=== PATIENT | female | born 1935 | race Caucasian/White ===

== ENCOUNTER → 2016-10-31 | Outpatient (REF) | payer MEDICARE ==
[2016-10-31 16:18] LABS: ALBUMIN 3.6 GM/DL (3.2-5.2); ALBUMIN/GLOBULIN RATIO 0.97 (1.00-1.93); ALKALINE PHOSPHATASE 87 U/L (45-117); ALT/SGPT 25 U/L (12-78); AST/SGOT 13 U/L (15-37); BILIRUBIN,DIRECT < 0.1 MG/DL (0.0-0.2); BILIRUBIN,TOTAL 0.3 MG/DL (0.2-1.0); CHOLESTEROL LEVEL 216 MG/DL (<200); TOTAL PROTEIN 7.3 GM/DL (6.4-8.2); TRIGLYCERIDES LEVEL 184 MG/DL (<150)
== END ==
LOC: M LABDRAW1 13:08
PROVIDERS: ATTEND Internal Medicine Cardiovascular Disease
DX: E78.00 Pure hypercholesterolemia, unspecified (principal)

== ENCOUNTER 2018-10-04 22:11 | Inpatient (IN) | payer MEDICARE ==
[~2018-10-04] VITALS: Ht 160 cm; Wt 89.4 kg
[2018-10-05 00:15] VITALS: BP 131/61
[2018-10-05] MEDS ORDERED: MAALOX 30 ML SUSP *UDC PO PRN (01:45)
[2018-10-05] MEDS ORDERED: GLUCAGON FOR INJ 1 MG VIAL (J1610) SC PRN (01:45)
[2018-10-05] MEDS ORDERED: DEXTROSE 50% 50 ML SYRINGE IV PRN (01:45)
[2018-10-05] MEDS ORDERED: GLUCOSE 4 GM CHEW TABLET PO PRN (01:45)
[2018-10-05] MEDS ORDERED: MOM 30ML SUSPENSION UDC PO PRN (01:45)
[2018-10-05] MEDS ORDERED: ACETAMINOPHEN TAB 650MG DOSE (2X325MG) PO PRN (01:45)
--- NOTE | 2018-10-05 01:59 | HPEPDOC ---
General Date of Admission October 05, 2018 at 00:06 Chief Complaint The patient is a 83-year-old female admitted with a reason for visit of Diverticulitis. Source: Patient, RN/MD History of Present Illness Ms. Arias is an 83 years old woman transferred from [facility] for Diverticul itis with microperforation. Pt reports lower abdominal pain and nausea for several days. She also had loose stools, but denies fever or chills. At [facility] ED, pt had WBC of 15K with normal vitals. CT abdomen showed Sigmoid Diverticulitis with microperforation. On arrival here, pt reports resolution of abdominal pain after having received pain meds. She has mild nausea. Mental status and vitals are good. Pt reports having similar episode seven years ago. 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 (recently switched from Coumadin to Xarelto), Hypothyroidism Surgical History Appendectomy, Cholecystectomy, Tubal ligation Family History None reported Social History * Smoker: former Smoker Alcohol: occationally Drugs: denies A-FIB/CHADSVASC A-FIB History Current/History of A-Fib/PAF?: No Review of Systems Constitutional: Denies: Chills, Fever Eyes: Denies: Pain ENT: Denies: Head Aches Skin: Denies: Rash Pulmonary: Denies: Dyspnea, Cough Cardiovascular: Denies: Chest Pain, Palpitations Gastrointestinal: Reports: Nausea, Abdominal Pain; Denies: Vomiting, Diarrhea Genitourinary: Denies: Dysuria, Frequency Musculoskeletal: Denies: Neck Pain, Back Pain Neurological: Denies: Weakness Psych: Reports: Mood Normal; Denies: Anxiety Physical Examination General Exam: Positive: Alert, Cooperative, No Acute Distress Eye Exam: Positive: PERRLA ENT Exam: Positive: Atraumatic Neck Exam: Positive: Supple; Negative: JVD Chest Exam: Positive: Clear to auscultation, Normal air movement Heart Exam: Positive: Rate Normal, Regular Rhythm Abdomen Exam: Positive: Normal bowel sounds, Soft, Other (tenderness without guarding on left lower abdomen) Extremity Exam: Negative: Edema Skin Exam: Negative: Rash Neuro Exam: Positive: Normal Speech, Strength at 5/5 X4 ext Psych Exam: Positive: Mental status NL, Mood NL Vital Signs See nursing note Laboratory Data Labs 24H Laboratory Tests 2 10/05/18 00:50: Bedside Glucose (Misc Panel) 168H Assessment/Plan Sigmoid Colon Diverticulitis with Microperforation - Admit to med/surg - NPO, IV Fluid, IV Cipro and Flagyl - PRN Morphine and Zofran - Surgical Consult; spoke with Dr. Avina Hx/o DVT on Life-long Anticoagulation - Hold Xarelto for now; put on therapeutic dose of Lovenox NIDDM, Hypothyroidism - SSI, Synthroid Problems (1) Diverticulitis large intestine Status: Acute (2) DM type 2 (diabetes mellitus, type 2) Status: Chronic (3) Hypothyroidism Status: Chronic (4) History of deep venous thrombosis or pulmonary embolus Status: Chronic Plan / VTE VTE Prophylaxis Ordered?: No (pt is on therapeutic lovenox) VTE Exclusion Mechanical Proph: Other VTE Exclusion Pharmacological: Other NOLBERTO RODRIGUEZ MD October 05, 2018 01:59
[2018-10-05 02:23] LABS: BASO % 0.1 % (0.0-1.0); EOS # 0.2 10^3/uL (0.0-0.50); EOS % 1.7 % (0.0-3.0); HEMOGLOBIN 8.8 g/dl (12.0-15.5); LYMPH # 2.6 10^3/uL (1.5-4.5); LYMPH % 19.1 % (24.0-44.0); MEAN CORPUSCULAR HEMOGLOBIN 25.7 pg (27.0-33.0); MEAN CORPUSCULAR HGB CONC 31.4 g/dl (32.0-36.5); MEAN CORPUSCULAR VOLUME 81.6 fl (80.0-96.0); MONO # 1.2 10^3/uL (0.0-0.8); MONO % 8.7 % (0.0-5.0); NEUTROPHILS # 9.4 10^3/uL (1.8-7.7); PLATELET COUNT, AUTOMATED 252 10^3/uL (150-450); RED BLOOD COUNT 3.43 10^6/uL (4.00-5.40); WHITE BLOOD COUNT 13.5 10^3/uL (4.0-10.0)
[2018-10-05] MEDS: D5W/0.9% SODIUM CHLORIDE 1,000 ML IV SCH ×3 (02:29→11:53)
[2018-10-05] MEDS ORDERED: AMLO5TAB6 PO (02:30)
[2018-10-05] MEDS ORDERED: MONT10TA2 PO (02:30)
[2018-10-05] MEDS ORDERED: SIMV40TA2 PO (02:30)
[2018-10-05] MEDS ORDERED: SYNT75TA PO (02:30)
[2018-10-05] MEDS ORDERED: XARE10TA PO (02:30)
[2018-10-05] MEDS ORDERED: ATEN25TA PO (02:30)
[2018-10-05] MEDS ORDERED: VITA1CAP25 PO (02:30)
[2018-10-05] MEDS ORDERED: CHLO25TA PO (02:30)
[2018-10-05] MEDS ORDERED: GLIP10TA6 PO (02:30)
[2018-10-05] MEDS ORDERED: SERT-138 PO (02:30)
[2018-10-05 02:44] LABS: INR 1.35; PROTHROMBIN TIME 16.9 SECONDS (12.1-14.4)
[2018-10-05 02:49] LABS: ALBUMIN 2.6 GM/DL (3.2-5.2); BILIRUBIN,TOTAL 0.5 MG/DL (0.2-1.0); CALCIUM LEVEL 8.1 MG/DL (8.8-10.2); CREATININE FOR GFR 1.8 MG/DL (0.55-1.30); GLOMERULAR FILTRATION RATE 28.6 (>32); POTASSIUM SERUM 3.9 MEQ/L (3.5-5.1); TOTAL PROTEIN 6.3 GM/DL (6.4-8.2)
[2018-10-05] MEDS: HumaLOG INSULIN (NovoLOG) PER UNIT SC SCH ×4 (02:59→18:00)
[2018-10-05] MEDS: LEVOTHYROXINE 75MCG TABLET (0.075MG) PO SCH (05:47)
[2018-10-05 06:00] VITALS: BP 125/90
[2018-10-05] MEDS: metroNIDAZOLE 500 MG in APPROPRIATE DILUENT 1 EA IV SCH ×3 (08:16→23:30)
[2018-10-05] MEDS: ENOXAPARIN 100MG/1ML SYRINGE (J1650) SC SCH ×2 (08:17→20:54)
[2018-10-05] MEDS: ATENOLOL 25 MG TAB PO SCH (08:18)
[2018-10-05] MEDS: SERTRALINE 100 MG TAB PO SCH (08:18)
[2018-10-05] MEDS: MONTELUKAST 10 MG TAB PO SCH (08:18)
[2018-10-05] MEDS: CIPROFLOXACIN 400 MG in APPROPRIATE DILUENT 1 EA IV SCH ×2 (09:08→20:54)
[2018-10-05] MEDS: ONDANSETRON 4MG/2ML VIAL (J2405) IV PRN ×2 (12:16→23:30)
[2018-10-05 14:00] VITALS: BP 131/59
--- NOTE | 2018-10-05 17:52 | IPNPDOC ---
Date Seen The patient was seen on 10/05/18. Progress Note SUBJECTIVE: Patient without any acute pain this time but she does have tenderness on her left lower quadrant. Patient states that she had similar episodes previously. Patient was evaluated by the general surgeon. Patient did not show signs of guarding or rigidity of the abdomen. Awaiting further recommendation by surgery. OBJECTIVE PHYSICAL EXAMINATION: VITAL SIGNS: Please see below GENERAL APPEARANCE: Resting comfortably HEENT: Normocephalic, PERRLA, Mucous moist, CARDIOVASCULAR: S1,S2, pulse present, regularly, regular LUNGS: Equal air entry b/l, no wheezes or crackle ABDOMEN: Soft, BS present, tenderness without guarding on left lower abdomen EXTREMITIES: B/L no edema, capillary refill present SKIN: Warm, No fever NEUROLOGICAL: Cranial nerves grossly intact PSYCHIATRIC: Normal mood and affect for current situation LABORATORY DATA, IMAGING STUDIES, MICROBIOLOGY: Please see below. Ms. Arias is an 83 years old woman transferred from [facility] for Diverticulitis with microperforation. Pt reports lower abdominal pain and nausea for several days. She also had loose stools, but denies fever or chills. At [facility] ED, pt had WBC of 15K with normal vitals. CT abdomen showed Sigmoid Diverticulitis with microperforation. On arrival here, pt reports resolution of abdominal pain after having received pain meds. She has mild nausea. Mental status and vitals are good. Pt reports having similar episode seven years ago. Assessment and plan: Sigmoid Colon Diverticulitis with Microperforation - NPO, advance as per surgery - s/p IV Fluid - IV Cipro and Flagyl - PRN Morphine and Zofran - Surgical Consult with Dr. Avina ARF -hold renal toxic medication -hold Chlorthalidone -gentle ivf Hx/o DVT on Life-long Anticoagulation - Hold Xarelto for now; put on therapeutic dose of Lovenox NIDDM -SSI -hypoglycemic protocol -hold po med Hypothyroidism -Synthroid HTN -Atenolol -norvasc HLD -statin DISPOSITION: [Treat acute issue]. VS, I&O, 24H, Fishbone Vital Signs/I&O Vital Signs Date Time Temp Pulse Resp B/P (MAP) Pulse Ox O2 Delivery O2 Flow Rate FiO2 10/05/18 14:00 97.3 56 18 131/59 (83) 95 I&O- Last 24 Hours up to 6 AM 5/7/19 06:00 Intake Total 0 ml Output Total 0 ml Balance 0 ml Laboratory Data 24H LABS Laboratory Tests 2 10/05/18 00:50: Bedside Glucose (Misc Panel) 168H 10/05/18 02:08: Immature Granulocyte % (Auto) 0.4, White Blood Count 13.5H, Red Blood Count 3.43L, Hemoglobin 8.8L, Hematocrit 28.0L, Mean Corpuscular Volume 81.6, Mean Corpuscular Hemoglobin 25.7L, Mean Corpuscular Hemoglobin Concent 31.4L, Red Cell Distribution Width 17.8H, Platelet Count 252, Neutrophils (%) (Auto) 70.0H, Lymphocytes (%) (Auto) 19.1L, Monocytes (%) (Auto) 8.7H, Eosinophils (%) (Auto) 1.7, Basophils (%) (Auto) 0.1, Neutrophils # (Auto) 9.4H, Lymphocytes # (Auto) 2.6, Monocytes # (Auto) 1.2H, Eosinophils # (Auto) 0.2, Basophils # (Auto) 0.0, Nucleated Red Blood Cells % (auto) 0.0, Prothrombin Time 16.9H, Prothromb Time International Ratio 1.35, Anion Gap 8, Glomerular Filtration Rate 28.6L, Lactic Acid Level 0.7, Blood Urea Nitrogen 32H, Creatinine 1.80H, Sodium Level 140, Potassium Level 3.9, Chloride Level 105, Carbon Dioxide Level 27, Calcium Level 8.1L, Aspartate Amino Transf (AST/SGOT) 8, Alanine Aminotransferase (ALT/SGPT) 16, Alkaline Phosphatase 109, Total Bilirubin 0.5, Total Protein 6.3L, Albumin 2.6L, Albumin/Globulin Ratio 0.70L 10/05/18 05:32: Bedside Glucose (Misc Panel) 156H 10/05/18 11:42: Bedside Glucose (Misc Panel) 171H CBC/BMP Laboratory Tests 10/05/18 02:08 Red Blood Count 3.43 L, Mean Corpuscular Volume 81.6, Mean Corpuscular Hemoglobin 25.7 L, Mean Corpuscular Hemoglobin Concent 31.4 L, Red Cell Distribution Width 17.8 H, Neutrophils (%) (Auto) 70.0 H, Lymphocytes (%) (Auto) 19.1 L, Monocytes (%) (Auto) 8.7 H, Eosinophils (%) (Auto) 1.7, Basophils (%) (Auto) 0.1, Neutrophils # (Auto) 9.4 H, Lymphocytes # (Auto) 2.6, Monocytes # (Auto) 1.2 H, Eosinophils # (Auto) 0.2, Basophils # (Auto) 0.0, Calcium Level 8.1 L, Aspartate Amino Transf (AST/SGOT) 8, Alanine Aminotransferase (ALT/SGPT) 16, Alkaline Phosphatase 109, Total Bilirubin 0.5, Total Protein 6.3 L, Albumin 2.6 L JOSÉ LUIS DAMON MD October 05, 2018 17:51
[2018-10-05] MEDS: SIMVASTATIN 40 MG TAB PO SCH (20:54)
[2018-10-05 22:00] VITALS: BP 136/63
[2018-10-06] MEDS: MORPHINE 4 MG/ML 1ML VIAL/SYRINGE (J2270) IV PRN ×2 (01:05→18:52)
[2018-10-06 06:00] VITALS: BP 131/60
[2018-10-06] MEDS: LEVOTHYROXINE 75MCG TABLET (0.075MG) PO SCH (06:19)
[2018-10-06] MEDS: HumaLOG INSULIN (NovoLOG) PER UNIT SC SCH ×4 (06:20→18:00)
[2018-10-06] MEDS: D5W/0.9% SODIUM CHLORIDE 1,000 ML IV SCH ×2 (07:58→17:23)
[2018-10-06] MEDS: MONTELUKAST 10 MG TAB PO SCH (08:01)
[2018-10-06] MEDS: amLODIPine 5 MG TAB PO SCH (08:01)
[2018-10-06] MEDS: SERTRALINE 100 MG TAB PO SCH (08:01)
[2018-10-06] MEDS: ENOXAPARIN 100MG/1ML SYRINGE (J1650) SC SCH ×2 (08:01→20:32)
[2018-10-06] MEDS: ATENOLOL 25 MG TAB PO SCH (08:01)
[2018-10-06] MEDS: metroNIDAZOLE 500 MG in APPROPRIATE DILUENT 1 EA IV SCH ×2 (08:01→15:31)
[2018-10-06 08:05] LABS: HEMATOCRIT 28.8 % (36.0-47.0); HEMOGLOBIN 8.8 g/dl (12.0-15.5); MEAN CORPUSCULAR HEMOGLOBIN 25.4 pg (27.0-33.0); MEAN CORPUSCULAR HGB CONC 30.6 g/dl (32.0-36.5); MEAN CORPUSCULAR VOLUME 83.2 fl (80.0-96.0); PLATELET COUNT, AUTOMATED 265 10^3/uL (150-450); RED BLOOD COUNT 3.46 10^6/uL (4.00-5.40); WHITE BLOOD COUNT 12.1 10^3/uL (4.0-10.0)
[2018-10-06 08:30] LABS: CALCIUM LEVEL 8.2 MG/DL (8.8-10.2); CREATININE FOR GFR 1.45 MG/DL (0.55-1.30); GLOMERULAR FILTRATION RATE 36.7 (>32); POTASSIUM SERUM 3.6 MEQ/L (3.5-5.1)
[2018-10-06] MEDS ORDERED: PREVNAR 13 VACCINE SYRINGE (CPT CODE:90670) IM ONE (09:00)
[2018-10-06] MEDS: CIPROFLOXACIN 400 MG in APPROPRIATE DILUENT 1 EA IV SCH ×2 (09:12→20:32)
[2018-10-06] MEDS: PANTOPRAZOLE 40MG INJ (PROTONIX) (C9113) IV SCH (09:48)
[2018-10-06] MEDS: ONDANSETRON 4MG/2ML VIAL (J2405) IV PRN ×2 (10:18→18:11)
[2018-10-06 14:00] VITALS: BP 141/65
--- NOTE | 2018-10-06 15:53 | IPNPDOC ---
Date Seen The patient was seen on 10/06/18. Progress Note SUBJECTIVE: Patient awaiting further recommendation by surgery. Patient strength feel slightly hungry. Patient's renal function improving. Otherwise no other complaints. She complained of reflux and thus will provide protonix IV. OBJECTIVE PHYSICAL EXAMINATION: VITAL SIGNS: Please see below GENERAL APPEARANCE: Resting comfortably HEENT: Normocephalic, PERRLA, Mucous moist, CARDIOVASCULAR: S1,S2, pulse present, regularly, regular LUNGS: Equal air entry b/l, no wheezes or crackle ABDOMEN: Soft, BS present, tenderness without guarding on left lower abdomen EXTREMITIES: B/L no edema, capillary refill present SKIN: Warm, No fever NEUROLOGICAL: Cranial nerves grossly intact PSYCHIATRIC: Normal mood and affect for current situation LABORATORY DATA, IMAGING STUDIES, MICROBIOLOGY: Please see below. Ms. Arias is an 83 years old woman transferred from [facility] for Diverticulitis with microperforation. Pt reports lower abdominal pain and nausea for several days. She also had loose stools, but denies fever or chills. At [facility] ED, pt had WBC of 15K with normal vitals. CT abdomen showed Sigmoid Diverticulitis with microperforation. On arrival here, pt reports resolution of abdominal pain after having received pain meds. She has mild nausea. Mental status and vitals are good. Pt reports having similar episode seven years ago. Assessment and plan: Sigmoid Colon Diverticulitis with Microperforation, GERD - NPO, advance as per surgery - s/p IV Fluid - IV Cipro and Flagyl - PRN Morphine and Zofran - Surgical Consult with Dr. Avina - Protonix ARF, improving -hold renal toxic medication -hold Chlorthalidone -gentle ivf Hx/o DVT on Life-long Anticoagulation - Hold Xarelto for now; put on therapeutic dose of Lovenox for possible surgical intervention NIDDM -SSI -hypoglycemic protocol -hold po med Hypothyroidism -Synthroid HTN -Atenolol -norvasc HLD -statin DISPOSITION: [Treat acute issue] VS, I&O, 24H, Fishbone Vital Signs/I&O Vital Signs Date Time Temp Pulse Resp B/P (MAP) Pulse Ox O2 Delivery O2 Flow Rate FiO2 10/06/18 14:00 98.3 66 17 141/65 (90) 92 I&O- Last 24 Hours up to 6 AM 10/06/18 06:00 Intake Total 500 ml Output Total 700 ml Balance -200 ml Laboratory Data 24H LABS Laboratory Tests 2 10/05/18 17:51: Bedside Glucose (Misc Panel) 141H 10/06/18 00:09: Bedside Glucose (Misc Panel) 151H 10/06/18 04:45: Urine Color YELLOW, Urine Appearance CLEAR, Urine pH 5.0, Urine Specific [place] 1.013, Urine Protein NEGATIVE, Urine Glucose (UA) NEGATIVE, Urine Ketones NEGATIVE, Urine Blood NEGATIVE, Urine Nitrite NEGATIVE, Urine Bilirubin NEGATIVE, Urine Urobilinogen 0.2, Urine Leukocyte Esterase TRACEH, Urine WBC (Auto) 1, Urine RBC (Auto) 1, Urine Hyaline Casts (Auto) 0, Urine Bacteria (Auto) NEGATIVE, Urine Squamous Epithelial Cells 0, Urine Mucus (Auto) SMALL, Urine Sperm (Auto) 10/06/18 06:11: Bedside Glucose (Misc Panel) 196H 10/06/18 07:50: Nucleated Red Blood Cells % (auto) 0.0, Anion Gap 5L, Glomerular Filtration Rate 36.7, Blood Urea Nitrogen 20H, Creatinine 1.45H, Sodium Level 139, Potassium L evel 3.6, Chloride Level 108H, Carbon Dioxide Level 26, Calcium Level 8.2L 10/06/18 11:59: Bedside Glucose (Misc Panel) 223H CBC/BMP Laboratory Tests 10/06/18 07:50 Red Blood Count 3.46 L, Mean Corpuscular Volume 83.2, Mean Corpuscular Hemoglobin 25.4 L, Mean Corpuscular Hemoglobin Concent 30.6 L, Red Cell Distribution Width 17.6 H, Calcium Level 8.2 L Microbiology Microbiology 10/06/18 Urine Culture, Received Pending JOSÉ LUIS DAMON MD October 06, 2018 15:53
[2018-10-06] MEDS: SIMVASTATIN 40 MG TAB PO SCH (20:32)
[2018-10-06 22:00] VITALS: BP 157/59
[2018-10-07] MEDS: metroNIDAZOLE 500 MG in APPROPRIATE DILUENT 1 EA IV SCH ×3 (00:23→15:19)
[2018-10-07] MEDS: HumaLOG INSULIN (NovoLOG) PER UNIT SC SCH ×3 (00:24→12:42)
[2018-10-07] MEDS: D5W/0.9% SODIUM CHLORIDE 1,000 ML IV SCH ×2 (01:13→12:43)
[2018-10-07] MEDS: LEVOTHYROXINE 75MCG TABLET (0.075MG) PO SCH (05:51)
[2018-10-07 06:00] VITALS: BP 141/65
[2018-10-07 06:09] LABS: HEMATOCRIT 27.2 % (36.0-47.0); HEMOGLOBIN 8.3 g/dl (12.0-15.5); MEAN CORPUSCULAR HEMOGLOBIN 24.9 pg (27.0-33.0); MEAN CORPUSCULAR HGB CONC 30.5 g/dl (32.0-36.5); MEAN CORPUSCULAR VOLUME 81.4 fl (80.0-96.0); PLATELET COUNT, AUTOMATED 261 10^3/uL (150-450); RED BLOOD COUNT 3.34 10^6/uL (4.00-5.40)
[2018-10-07 06:34] LABS: CREATININE FOR GFR 1.32 MG/DL (0.55-1.30); GLOMERULAR FILTRATION RATE 40.9 (>32); POTASSIUM SERUM 3.3 MEQ/L (3.5-5.1)
[2018-10-07] MEDS ORDERED: MAGNESIUM OXIDE 400 MG TAB (MAG-OX) PO ONE (08:00)
[2018-10-07] MEDS: CIPROFLOXACIN 400 MG in APPROPRIATE DILUENT 1 EA IV SCH ×2 (08:45→20:34)
[2018-10-07] MEDS: PANTOPRAZOLE 40MG INJ (PROTONIX) (C9113) IV SCH (08:45)
[2018-10-07] MEDS: ENOXAPARIN 100MG/1ML SYRINGE (J1650) SC SCH ×2 (08:46→20:34)
[2018-10-07] MEDS: ATENOLOL 25 MG TAB PO SCH (08:47)
[2018-10-07] MEDS: SERTRALINE 100 MG TAB PO SCH (08:47)
[2018-10-07] MEDS: MONTELUKAST 10 MG TAB PO SCH (08:47)
[2018-10-07] MEDS: amLODIPine 5 MG TAB PO SCH (08:47)
[2018-10-07] MEDS ORDERED: POTASSIUM CHLORIDE 10 MEQ SR TABLET PO ONE (09:00)
[2018-10-07] MEDS: GASTROGRAFIN SOLUTION 30ML PO SCH ×2 (09:30→09:36)
--- NOTE | 2018-10-07 13:55 | REP ---
CT abdomen and pelvis with oral but without IV contrast: History: Abdomen pain. Abnormal CT. Followup. No comparison CT studies are available. CT findings: Digital preliminary road machine runner radiograph demonstrates laparotomy jaelyn to the right of midline in the anterior abdominal wall. The bowel gas pattern is normal. The lung bases are essentially clear on axial CT images. Mild linear fibrosis is seen in the left lower lobe. There is a small sliding-type hiatal hernia noted. The liver and spleen are normal in size and homogeneous in texture. No adrenal lesion is seen on either side. The gallbladder is surgically absent. There are numerous calcifications within and adjacent to the pancreatic head, body and tail consistent with chronic pancreatitis changes. There is an inferior vena cava filter in place. There is a low-density area in the upper pole of the left kidney consistent with a cyst. This measures 2.1 cm in greatest diameter. No hydronephrosis is seen. No retroperitoneal mass is seen. There is a retroaortic left renal vein noted incidentally. There is left colonic diverticulosis. There is a segment of mural thickening and pericolonic fat streaking in the sigmoid colon with one or two adjacent lymph nodes. This is compatible with acute diverticulitis however a sigmoid colon neoplasm could have a similar appearance. This should be correlated clinically. There is no evidence of obstruction. No uterine or ovarian abnormality is seen. There is mild thickening of the urinary bladder wall on the left side and near its dome as this portion of the bladder is adjacent to the inflamed sigmoid colon. Impression: Mural thickening and diverticulosis with pericolonic streaking and adjacent lymph nodes in the sigmoid colon most consistent with acute diverticulitis. This should be correlated clinically. A sigmoid colon neoplasm could have this appearance as well. No evidence of free intraperitoneal air or abscess. IVC filter in place. Small left renal cyst. Electronically Signed by Salazar Spivey MD 10/07/2018 03:12 P
[2018-10-07 14:00] VITALS: BP 132/60
--- NOTE | 2018-10-07 14:28 | IPNPDOC ---
Date Seen The patient was seen on 10/07/18. Progress Note SUBJECTIVE: Patient still has generalized abdominal pain this morning. Patient was seen by surgery. CT abdomen with PO contrast:acute diverticulitis, a sigmoid colon neoplasm could have this appearance as well. Patient on abx. Further recommendation as per surgery. Low potassium, will replace. OBJECTIVE PHYSICAL EXAMINATION: VITAL SIGNS: Please see below GENERAL APPEARANCE: Resting comfortably HEENT: Normocephalic, PERRLA, Mucous moist, CARDIOVASCULAR: S1,S2, pulse present, regularly, regular LUNGS: Equal air entry b/l, no wheezes or crackle ABDOMEN: Soft, BS present, tenderness without guarding on left lower abdomen EXTREMITIES: B/L no edema, capillary refill present SKIN: Warm, No fever NEUROLOGICAL: Cranial nerves grossly intact PSYCHIATRIC: Normal mood and affect for current situation LABORATORY DATA, IMAGING STUDIES, MICROBIOLOGY: Please see below. Ms. Arias is an 83 years old woman transferred from [facility] for Diverticulitis with microperforation. Pt reports lower abdominal pain and nausea for several days. She also had loose stools, but denies fever or chills. At [facility] ED, pt had WBC of 15K with normal vitals. CT abdomen showed Sigmoid Diverticulitis with microperforation. On arrival here, pt reports resolution of abdominal pain after having received pain meds. She has mild nausea. Mental status and vitals are good. Pt reports having similar episode seven years ago. Assessment and plan: Sigmoid Colon Diverticulitis with Microperforation, GERD - NPO, advance as per surgery - s/p IV Fluid - IV Cipro and Flagyl - PRN Morphine and Zofran - Surgical Consult with Dr. Avina - Protonix - UA negative, urine culture: no growth - Ct abdomen:Mural thickening and diverticulosis with pericolonic streaking and adjacent lymph nodes in the sigmoid colon most consistent with acute diverticulitis. This should be correlated clinically. A sigmoid colon neoplasm could have this appearance as well. No evidence of free intraperitoneal air or abscess. IVC filter in place. Small left renal cyst. ARF, improving -hold renal toxic medication -hold Chlorthalidone -gentle ivf Hx/o DVT on Life-long Anticoagulation - Hold Xarelto for now; put on therapeutic dose of Lovenox for possible surgical intervention NIDDM -SSI -hypoglycemic protocol -hold po med Hypothyroidism -Synthroid HTN -Atenolol -norvasc HLD -statin DISPOSITION: [Treat acute issue]. VS, I&O, 24H, Fishbone Vital Signs/I&O Vital Signs Date Time Temp Pulse Resp B/P (MAP) Pulse Ox O2 Delivery O2 Flow Rate FiO2 10/07/18 08:47 68 140/65 10/07/18 06:00 97.3 20 95 I&O- Last 24 Hours up to 6 AM 10/07/18 06:00 Intake Total 2700 ml Output Total 350 ml Balance 2350 ml Laboratory Data 24H LABS Laboratory Tests 2 10/06/18 18:14: Bedside Glucose (Misc Panel) 139H 10/06/18 23:40: Bedside Glucose (Misc Panel) 172H 10/07/18 05:31: Nucleated Red Blood Cells % (auto) 0.0, Anion Gap 7L, Glomerular Filtration Rate 40.9, Blood Urea Nitrogen 13, Creatinine 1.32H, Sodium Level 140, Potassium Level 3.3L, Chloride Level 106, Carbon Dioxide Level 27, Calcium Level 8.0L 10/07/18 05:48: Bedside Glucose (Misc Panel) 150H 10/07/18 11:54: Bedside Glucose (Misc Panel) 187H CBC/BMP Laboratory Tests 10/07/18 05:31 Red Blood Count 3.34 L, Mean Corpuscular Volume 81.4, Mean Corpuscular Hemoglobin 24.9 L, Mean Corpuscular Hemoglobin Concent 30.5 L, Red Cell Distribution Width 17.3 H, Calcium Level 8.0 L Microbiology Microbiology 10/06/18 Urine Culture - Final, Complete JOSÉ LUIS DAMON MD October 07, 2018 14:27
[2018-10-07] MEDS ORDERED: MAG SULF 1GM/100ML (MAG RUN) 1 GM in APPROPRIATE DILUENT 1 EA IV ONE (14:30)
[2018-10-07] MEDS ORDERED: KCL 10MEQ/100ML SWI (KRUN) 10 MEQ in APPROPRIATE DILUENT 1 EA IV SCH (15:30)
--- NOTE | 2018-10-07 17:07 | IPNPDOC ---
Subjective General Date/Time Seen The patient was seen on 10/07/18 at 16:49. Subject Chief Complaint/History The patient is a 83-year-old female admitted with a reason for visit of Diverticulitis. Patient feels somewhat better still has some discomfort over the left lower quadrant area but is tolerating clears. She denies any nausea or vomiting. She has been afebrile throughout her same hospital. Current Medications Current Medications Current Medications Acetaminophen (Tylenol Tab) 650 mg Q4H PRN PO PAIN OR FEVER Last administered on 10/05/18 18:49; Start 10/05/18 at 01:45 Al Hydrox/Mg Hydrox/Simethicone (Mylanta) 10 ml DAILY PRN PO DYSPEPSIA Last administered on 10/06/18 10:17; Start 10/05/18 at 01:45 Amlodipine Besylate (Norvasc) 5 mg DAILY PO Last administered on 10/07/18 08:47; Start 10/06/18 at 09:00 Atenolol (Tenormin) 25 mg DAILY PO Last administered on 10/07/18 08:47; Start 10/05/18 at 09:00 Ciprofloxacin 400 mg/IV Miscellaneous Supplies 200 ml @ 200 mls/hr Q12H IV Last administered on 10/07/18 08:45; Start 10/05/18 at 09:00 Dextrose (Dextrose 50%) 25 ml ASDIRECTED PRN IV SEE LABEL COMMENTS; Start 10/05/18 at 01:45 Dextrose/Sodium Chloride 1,000 ml @ 100 mls/hr Q10H IV Last administered on 10/07/18at 12:43; Start 10/05/18 at 01:45 Diatrizoate Meglum/ Diatrizoate Sod (Gastrografin) 10 ml Q30M PO Last administered on 10/07/18 09:30; Start 10/07/18 at 09:00; Stop 10/07/18 at 09:31; Status DC Enoxaparin Sodium (Lovenox) 90 mg Q12H SC Last administered on 10/07/18 08:46; Start 10/05/18 at 09:00 Glucagon (Glucagon) 1 mg ASDIRECTED PRN SC SEE LABEL COMMENTS; Start 10/05/18 at 01:45 Glucose (Glucose) 16 GM ASDIRECTED PRN PO SEE LABEL COMMENTS; Start 10/05/18 at 01:45 Home Med (Med Rec Complete!) ASDIRECTED XX ; Start 10/05/18 at 02:30; Stop 10/05/18 at 02:35; Status DC Insulin Human Lispro (HumaLOG INSULIN) SEE PROTOCOL TABLE Q6H SC Last administered on 10/07/18 12:42; Start 10/05/18 at 00:00 Levothyroxine Sodium (Synthroid) 75 mcg DAILY@0600 PO Last administered on 10/07/18 05:51; Start 10/05/18 at 06:00 Magnesium Hydroxide (Milk Of Magnesia) 30 ml DAILY PRN PO CONSTIPATION; Start 10/05/18 at 01:45 Metronidazole 500 mg/IV Miscellaneous Supplies 100 ml @ 100 mls/hr Q8H IV Last administered on 10/07/18 15:19; Start 10/05/18 at 08:00 Montelukast Sodium (Singulair) 10 mg DAILY PO Last administered on 10/07/18 08:47; Start 10/05/18 at 09:00 Morphine Sulfate (Morphine Sulfate Inj) 2 mg Q3HP PRN IV PAIN Last administered on 10/06/18 18:52; Start 10/05/18 at 01:45 Ondansetron HCl (ZOFRAN INJection) 4 mg Q4HP PRN IV NAUSEA OR VOMITING Last administered on 10/06/18 18:11; Start 10/05/18 at 01:45 Pantoprazole Sodium (Protonix) 40 mg Q24H IV Last administered on 10/07/18 08:45; Start 10/06/18 at 09:00 Potassium Chloride 10 meq/ IV Miscellaneous Supplies 100 ml @ 100 mls/hr Q1H IV ; Start 10/07/18 at 15:30; Stop 10/07/18 at 15:30; Status DC Sertraline HCl (Zoloft) 100 mg DAILY PO Last administered on 10/07/18 08:47; Start 10/05/18 at 09:00 Simvastatin (Zocor) 40 mg QHS PO Last administered on 10/06/18 20:32; Start 10/05/18 at 21:00 Allergies Coded Allergies: aspirin (Unverified Allergy, Unknown, 10/05/18) Objective Physical Examination Examination GENERAL APPEARANCE: Patient overall looks comfortable. SKIN: Warm and moist. HEENT: Normocephalic, atraumatic. Mccrory palpebral conjunctiva, anicteric sclerae. Lips and mucosa appear moist. NECK: Supple, no thyromegaly. No obvious jugular venous distention. LUNGS: Clear to auscultation bilaterally. No wheezing appreciated. HEART: No chest wall abnormalities. Regular rate and rhythm with no murmurs appreciated. ABDOMEN: Abdomen is slightly rounded, mildly obese, soft, minimal discomfort with deep palpation over the left lower quadrant area without rebound or guarding, no discomfort over the suprapubic area, right lower quadrant area. Vital Signs Vital Signs Date Time Temp Pulse Resp B/P (MAP) Pulse Ox O2 Delivery O2 Flow Rate FiO2 10/07/18 14:00 97.9 61 18 132/60 (84) 92 I&Os I&O- Last 24 Hours up to 6 AM 10/07/18 06:00 Intake Total 2700 ml Output Total 350 ml Balance 2350 ml Laboratory Data Labs 24H Laboratory Tests 2 10/06/18 18:14: Bedside Glucose (Misc Panel) 139H 10/06/18 23:40: Bedside Glucose (Misc Panel) 172H 10/07/18 05:31: Nucleated Red Blood Cells % (auto) 0.0, Anion Gap 7L, Glomerular Filtration Rate 40.9, Blood Urea Nitrogen 13, Creatinine 1.32H, Sodium Level 140, Potassium Level 3.3L, Chloride Level 106, Carbon Dioxide Level 27, Calcium Level 8.0L 10/07/18 05:48: Bedside Glucose (Misc Panel) 150H 10/07/18 11:54: Bedside Glucose (Misc Panel) 187H CBC/BMP Laboratory Tests 10/07/18 05:31 Red Blood Count 3.34 L, Mean Corpuscular Volume 81.4, Mean Corpuscular Hemoglobin 24.9 L, Mean Corpuscular Hemoglobin Concent 30.5 L, Red Cell Distribution Width 17.3 H, Calcium Level 8.0 L Microbiology Microbiology 10/06/18 Urine Culture - Final, Complete Imaging Studies CT abdomen and pelvis There is left colonic diverticulosis. There is a segment of mural thickening and pericolonic fat streaking in the sigmoid colon with one or two adjacent lymph nodes. This is compatible with acute diverticulitis however a sigmoid colon neoplasm could have a similar appearance. This should be correlated clinically. There is no evidence of obstruction. No uterine or ovarian abnormality is seen. There is mild thickening of the urinary bladder wall on the left side and near its dome as this portion of the bladder is adjacent to the inflamed sigmoid colon. Impression: Mural thickening and diverticulosis with pericolonic streaking and adjacent lymph nodes in the sigmoid colon most consistent with acute diverticulitis. This should be correlated clinically. A sigmoid colon neoplasm could have this appearance as well. No evidence of free intraperitoneal air or abscess. IVC filter in place. Small left renal cyst. Impression acute diverticulitis Pain improved (though still has discomfort) no progression of diverticulitis on CT, mild improvement She can be advanced to low residue diet Switch to PO abx when tolerating PO colonoscopy as outpatient (usually 6-8 weeks) I discussed elective colon resection to prevent recurrence of diverticulitis (If she wants to) Plan / VTE VTE Prophylaxis Ordered?: Yes VTE Exclusion Mechanical Proph: Other VTE Exclusion Pharmacological: Other CONRAD SHIRLEY MD October 07, 2018 16:51
[2018-10-07] MEDS: SIMVASTATIN 40 MG TAB PO SCH (20:33)
[2018-10-07 22:00] VITALS: BP 130/59
[2018-10-08] MEDS: metroNIDAZOLE 500 MG in APPROPRIATE DILUENT 1 EA IV SCH ×2 (00:57→08:11)
[2018-10-08] MEDS: D5W/0.9% SODIUM CHLORIDE 1,000 ML IV SCH (04:45)
[2018-10-08 05:58] LABS: HEMATOCRIT 27.3 % (36.0-47.0); HEMOGLOBIN 8.3 g/dl (12.0-15.5); MEAN CORPUSCULAR HEMOGLOBIN 25.2 pg (27.0-33.0); MEAN CORPUSCULAR HGB CONC 30.4 g/dl (32.0-36.5); PLATELET COUNT, AUTOMATED 236 10^3/uL (150-450); RED BLOOD COUNT 3.29 10^6/uL (4.00-5.40); WHITE BLOOD COUNT 8.2 10^3/uL (4.0-10.0)
[2018-10-08 06:00] VITALS: BP 155/80
[2018-10-08] MEDS: LEVOTHYROXINE 75MCG TABLET (0.075MG) PO SCH (06:01)
[2018-10-08 06:19] LABS: CALCIUM LEVEL 7.9 MG/DL (8.8-10.2); CREATININE FOR GFR 1.23 MG/DL (0.55-1.30); GLOMERULAR FILTRATION RATE 44.4 (>32); POTASSIUM SERUM 3.5 MEQ/L (3.5-5.1)
[2018-10-08] MEDS: PANTOPRAZOLE 40MG INJ (PROTONIX) (C9113) IV SCH (08:10)
[2018-10-08] MEDS: ENOXAPARIN 100MG/1ML SYRINGE (J1650) SC SCH ×2 (08:12→20:10)
[2018-10-08] MEDS: CIPROFLOXACIN 400 MG in APPROPRIATE DILUENT 1 EA IV SCH (08:12)
[2018-10-08] MEDS: ATENOLOL 25 MG TAB PO SCH (08:13)
[2018-10-08] MEDS: SERTRALINE 100 MG TAB PO SCH (08:14)
[2018-10-08] MEDS: amLODIPine 5 MG TAB PO SCH (08:14)
[2018-10-08] MEDS: MONTELUKAST 10 MG TAB PO SCH (08:14)
--- NOTE | 2018-10-08 09:07 | IPNPDOC ---
Date Seen The patient was seen on 10/08/18. Progress Note SUBJECTIVE: Patient ate solid food last night. She still has some abdominal pain but willing to try solid today. No abdominal rigidity. Spoke to sx this morning, can change abx to PO and if tolerates will anticipate d/c tomorrow. Patient also agree with this plan. OBJECTIVE PHYSICAL EXAMINATION: VITAL SIGNS: Please see below GENERAL APPEARANCE: Resting comfortably HEENT: Normocephalic, PERRLA, Mucous moist, CARDIOVASCULAR: S1,S2, pulse present, regularly, regular LUNGS: Equal air entry b/l, no wheezes or crackle ABDOMEN: Soft, BS present, improving tenderness without guarding on left lower abdomen EXTREMITIES: B/L no edema, capillary refill present SKIN: Warm, No fever NEUROLOGICAL: Cranial nerves grossly intact PSYCHIATRIC: Normal mood and affect for current situation LABORATORY DATA, IMAGING STUDIES, MICROBIOLOGY: Please see below. Ms. Arias is an 83 years old woman transferred from [facility] for Diverticulitis with microperforation. Pt reports lower abdominal pain and nausea for several days. She also had loose stools, but denies fever or chills. At [facility] ED, pt had WBC of 15K with normal vitals. CT abdomen showed Sigmoid Diverticulitis with microperforation. She was placed on cipro and flagyl. She was seen by surgeon as below. She also had repeat CT abdomen, report as below. Spoke to Dr. Avina, patient can be d/peter with PO antibiotic and follow up in 1-2weeks. On arrival here, pt reports resolution of abdominal pain after having received pain meds. She has mild nausea. Mental status and vitals are good. Pt reports having similar episode seven years ago. Assessment and plan: Sigmoid Colon Diverticulitis with Microperforation, GERD - s/p NPO, advance as per surgery - s/p IV Fluid - s/p IV Cipro and Flagyl, will give for script for po at discharge - PRN Morphine and Zofran - Surgical Consult with Dr. vAina - Protonix - UA negative, urine culture: no growth - Ct abdomen:Mural thickening and diverticulosis with pericolonic streaking and adjacent lymph nodes in the sigmoid colon most consistent with acute diverticulitis. This should be correlated clinically. A sigmoid colon neoplasm could have this appearance as well. No evidence of free intraperitoneal air or abscess. IVC filter in place. Small left renal cyst. 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 - Hold Xarelto for now; put on therapeutic dose of Lovenox for possible surgical intervention NIDDM -SSI -hypoglycemic protocol -hold po med Hypothyroidism -Synthroid HTN -Atenolol -norvasc HLD -statin DISPOSITION:anticipate d/c within 24-48hr VS, I&O, 24H, Fishbone Vital Signs/I&O Vital Signs Date Time Temp Pulse Resp B/P (MAP) Pulse Ox O2 Delivery O2 Flow Rate FiO2 10/08/18 08:14 78 147/65 10/08/18 06:00 98.0 20 95 I&O- Last 24 Hours up to 6 AM 10/08/18 06:00 Intake Total 3260 ml Output Total 800 ml Balance 2460 ml Laboratory Data 24H LABS Laboratory Tests 2 10/07/18 11:54: Bedside Glucose (Misc Panel) 187H 10/07/18 18:43: Bedside Glucose (Misc Panel) 193H 10/07/18 20:34: Bedside Glucose (Misc Panel) 187H 10/08/18 05:44: Nucleated Red Blood Cells % (auto) 0.0, Anion Gap 8, Glomerular Filtration Rate 44.4, Blood Urea Nitrogen 10, Creatinine 1.23, Sodium Level 139, Potassium Level 3.5, Chloride Level 107, Carbon Dioxide Level 24, Calcium Level 7.9L CBC/BMP Laboratory Tests 10/08/18 05:44 Red Blood Count 3.29 L, Mean Corpuscular Volume 83.0, Mean Corpuscular Hemoglobin 25.2 L, Mean Corpuscular Hemoglobin Concent 30.4 L, Red Cell Distribution Width 17.1 H, Calcium Level 7.9 L Microbiology Microbiology 10/06/18 Urine Culture - Final, Complete JOSÉ LUIS DAMON MD October 08, 2018 09:07
[2018-10-08] MEDS: metroNIDAZOLE (FLAGYL) 500 MG TAB PO SCH ×2 (13:42→22:40)
[2018-10-08 14:00] VITALS: BP 129/97
[2018-10-08] MEDS: CIPROFLOXACIN 500 MG TAB PO SCH (17:15)
[2018-10-08] MEDS: ONDANSETRON 4MG/2ML VIAL (J2405) IV PRN (20:08)
[2018-10-08] MEDS: SIMVASTATIN 40 MG TAB PO SCH (20:09)
[2018-10-08 22:00] VITALS: BP 145/66
[2018-10-09 05:49] LABS: HEMATOCRIT 27.8 % (36.0-47.0); HEMOGLOBIN 8.6 g/dl (12.0-15.5); MEAN CORPUSCULAR HEMOGLOBIN 25.4 pg (27.0-33.0); MEAN CORPUSCULAR HGB CONC 30.9 g/dl (32.0-36.5); PLATELET COUNT, AUTOMATED 267 10^3/uL (150-450); RED BLOOD COUNT 3.39 10^6/uL (4.00-5.40)
[2018-10-09] MEDS: CIPROFLOXACIN 500 MG TAB PO SCH (05:49)
[2018-10-09] MEDS: metroNIDAZOLE (FLAGYL) 500 MG TAB PO SCH ×2 (05:49→13:36)
[2018-10-09] MEDS: LEVOTHYROXINE 75MCG TABLET (0.075MG) PO SCH (05:49)
[2018-10-09 06:00] VITALS: BP 135/64
[2018-10-09 06:14] LABS: CALCIUM LEVEL 8.5 MG/DL (8.8-10.2); CREATININE FOR GFR 1.16 MG/DL (0.55-1.30); GLOMERULAR FILTRATION RATE 47.5 (>32); POTASSIUM SERUM 3.6 MEQ/L (3.5-5.1)
[2018-10-09] MEDS: PANTOPRAZOLE 40MG INJ (PROTONIX) (C9113) IV SCH (08:30)
[2018-10-09] MEDS: SERTRALINE 100 MG TAB PO SCH (08:31)
[2018-10-09] MEDS: amLODIPine 5 MG TAB PO SCH (08:31)
[2018-10-09 08:32] VITALS: BP 122/68
[2018-10-09] MEDS: ENOXAPARIN 100MG/1ML SYRINGE (J1650) SC SCH (08:32)
[2018-10-09] MEDS: ATENOLOL 25 MG TAB PO SCH (08:32)
[2018-10-09] MEDS: MONTELUKAST 10 MG TAB PO SCH (08:32)
[2018-10-09] MEDS ORDERED: CIPR-249 PO (13:21)
[2018-10-09] MEDS ORDERED: METR-265 PO (13:21)
--- NOTE | 2018-10-09 13:35 | DS.PDOC ---
Discharge Summary General Date of Admission October 05, 2018 at 00:06 Date of Discharge 10/09/18 Discharge Summary PROCEDURES PERFORMED DURING STAY: [None]. 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 HISTORY OF PRESENT ILLNESS: [Ms. Arias is an 83 years old woman transferred from [facility] for Diverticulitis with microperforation. Pt reports lower abdominal pain and nausea for several days. She also had loose stools, but denies fever or chills. At [facility] ED, pt had WBC of 15K with normal v itals. CT abdomen showed Sigmoid Diverticulitis with microperforation. She was placed on cipro and flagyl. She was seen by surgeon as below. She also had repeat CT abdomen, report as below. Spoke to Dr. Avina, patient can be d/peter with PO antibiotic and follow up in 1-2weeks. On arrival here, pt reports resolution of abdominal pain after having received pain meds. She has mild nausea. Mental status and vitals are good. Pt reports having similar episode seven years ago.]. HOSPITAL COURSE: [ 83 years old woman transferred from [facility] for Diverticulitis with microperforation. Pt reports lower abdominal pain and nausea for several days admitted and treated for Sigmoid Colon Diverticulitis with Microperforation, GERD. Patient was evaluated by the surgeon and was started on antibiotic. See the treatment below. Patient improved and tolerated diet. Patient okay to be discharged home today by surgery. Patient will be discharged on prescription for by mouth ciprofloxacin and Flagyl. Please follow up with PCP and surgeon within 1 week. Sigmoid Colon Diverticulitis with Microperforation, GERD - s/p NPO, advance as per surgery - s/p IV Fluid - s/p IV Cipro and Flagyl, will give for script for po at discharge - PRN Morphine and Zofran - Surgical Consult with Dr. Avina - Protonix - UA negative, urine culture: no growth - repeat Ct abdomen:Mural thickening and diverticulosis with pericolonic streaking and adjacent lymph nodes in the sigmoid colon most consistent with acute diverticulitis. This should be correlated clinically. A sigmoid colon neoplasm could have this appearance as well. No evidence of free intraperitoneal air or abscess. IVC filter in place. Small left renal cyst. 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 DISCHARGE MEDICATIONS: Please see below. ALLERGIES: Please see below. PHYSICAL EXAMINATION ON DISCHARGE: VITAL SIGNS: Please see below GENERAL APPEARANCE: Resting comfortably HEENT: Normocephalic, PERRLA, Mucous moist, CARDIOVASCULAR: S1,S2, pulse present, regularly, regular LUNGS: Equal air entry b/l, no wheezes or crackle ABDOMEN: Soft, BS present, improved abdominal tenderness and able to eat solid food EXTREMITIES: B/L no edema, capillary refill present SKIN: Warm, No fever NEUROLOGICAL: Cranial nerves grossly intact PSYCHIATRIC: Normal mood and affect for current situation LABORATORY DATA: Please see below. IMAGING: [Repeat CT abdomen as mentioned above] PROGNOSIS: [Improved] ACTIVITY: [As tolerated]. DIET: [Carbohydrate diet] DISPOSITION: Home DISCHARGE CONDITION: [Stable]. TIME SPENT ON DISCHARGE: Greater than [35] minutes. Vital Signs/I&Os Vital Signs Date Time Temp Pulse Resp B/P (MAP) Pulse Ox O2 Delivery O2 Flow Rate FiO2 10/09/18 08:32 77 122/68 10/09/18 06:00 98.3 18 93 I&O- Last 24 Hours up to 6 AM 10/09/18 06:00 Intake Total 1500 ml Output Total 150 ml Balance 1350 ml Laboratory Data Labs 24H Laboratory Tests 2 10/09/18 05:25: Nucleated Red Blood Cells % (auto) 0.0, Anion Gap 5L, Glomerular Filtration Rate 47.5, Blood Urea Nitrogen 11, Creatinine 1.16, Sodium Level 140, Potassium Level 3.6, Chloride Level 106, Carbon Dioxide Level 29, Calcium Level 8.5L CBC/BMP Laboratory Tests 10/09/18 05:25 Red Blood Count 3.39 L, Mean Corpuscular Volume 82.0, Mean Corpuscular Hemoglobin 25.4 L, Mean Corpuscular Hemoglobin Concent 30.9 L, Red Cell Distribution Width 17.2 H, Calcium Level 8.5 L Microbiology Microbiology 10/06/18 Urine Culture - Final, Complete Discharge Medications Scheduled Amlodipine Besylate (Amlodipine Besylate) 5 Mg Tablet, 5 MG PO DAILY, (Reported) Atenolol (Atenolol) 25 Mg Tablet, 25 MG PO DAILY, (Reported) Chlorthalidone (Chlorthalidone) 25 Mg Tablet, 25 MG PO DAILY, (Reported) Cholecalciferol (Vitamin D3) (Vitamin D3) 50,000 Unit Capsule, 50,000 UNIT PO 1XWK, (Reported) SUNDAYS Ciprofloxacin HCl (Cipro) 500 Mg Tablet, 500 MG PO BID@ Glipizide (Glipizide) 10 Mg Tablet, 10 MG PO BID, (Reported) Levothyroxine Sodium (Synthroid) 75 Mcg Tablet, 75 MCG PO DAILY, (Reported) Metronidazole (Metronidazole) 500 Mg Tablet, 500 MG PO Q8H Montelukast Sodium (Montelukast Sodium) 10 Mg Tablet, 10 MG PO DAILY, (Reported) Rivaroxaban (Xarelto) 10 Mg Tablet, 10 MG PO QHS, (Reported) Sertraline HCl (Sertraline HCl) 100 Mg Tablet, 100 MG PO DAILY, (Reported) Simvastatin (Simvastatin) 40 Mg Tablet, 40 MG PO QHS, (Reported) Allergies Coded Allergies: aspirin (Unverified Allergy, Unknown, 10/05/18) JOSÉ LUIS DAMON MD October 09, 2018 13:35
== END 2018-10-09 14:40 | disposition home or self-care (01) | DRG 392 ==
LOC: M MSPAV 10-05 00:06
PROVIDERS: ADMIT Internal Medicine; ATTEND Internal Medicine
DX: K57.80 Diverticulitis of intestine, part unspecified, with perforation and abscess without bleeding (principal); N17.9 Acute kidney failure, unspecified; E11.9 Type 2 diabetes mellitus without complications; E03.9 Hypothyroidism, unspecified; I10 Essential (primary) hypertension; Z79.01 Long term (current) use of anticoagulants; Z86.718 Personal history of other venous thrombosis and embolism; Z88.6 Allergy status to analgesic agent; Z79.899 Other long term (current) drug therapy

== ENCOUNTER 2018-11-17 07:07 | Day surgery (SDC) | payer MEDICARE ==
[~2018-11-17] VITALS: Ht 160 cm; Wt 87.6 kg
[~2018-11-17 07:07] MED LIST: AMLO5TAB6 PO; ATEN25TA PO; CHLO25TA PO; CIPR-249 PO; GLIP10TA6 PO; METR-265 PO; MONT10TA2 PO; NS 1,000 ML IV ONE; SERT-138 PO; SIMV40TA2 PO; SYNT75TA PO; VITA1CAP25 PO; XARE10TA PO
[2018-11-17] MEDS ORDERED: PROPOFOL 200 MG/20 ML VIAL As Ordered ONE (08:33)
[2018-11-17] MEDS ORDERED: LIDOCAINE 2% INJ 100 MG/5 ML SDV (FOR ANES.) As Ordered ONE (08:33)
--- NOTE | 2018-11-17 08:48 | ROOR ---
Patient Name: Aspen Arias Procedure Date: 11/17/2018 8:17 AM Date of : 1935 Age: 83 Room: [facility] Gender: Female Note Status: Finalized Procedure: Colonoscopy Indications: Follow-up of diverticulitis Providers: Janak Avina MD Referring MD: SOUMYA STONE MD Requesting Provider: Medicines: Monitored Anesthesia Care Complications: No immediate complications. Procedure: Pre-Anesthesia Assessment: - Prior to the procedure, a History and Physical was performed, and patient medications and allergies were reviewed. The patient is competent. The risks and benefits of the procedure and the sedation options and risks were discussed with the patient. All questions were answered and informed consent was obtained. Patient identification and proposed procedure were verified by the physician, the nurse and the anesthesiologist in the endoscopy suite. Mental Status Examination: alert and oriented. Airway Examination: normal oropharyngeal airway and neck mobility. Respiratory Examination: clear to auscultation. CV Examination: normal. Prophylactic Antibiotics: The patient does not require prophylactic antibiotics. Prior Anticoagulants: The patient has taken Xarelto (rivaroxaban), last dose was 3 days prior to procedure. ASA Grade Assessment: III - A patient with severe systemic disease. After reviewing the risks and benefits, the patient was deemed in satisfactory condition to undergo the procedure. The anesthesia plan was to use monitored anesthesia care (MAC). Immediately prior to administration of medications, the patient was re-assessed for adequacy to receive sedatives. The heart rate, respiratory rate, oxygen saturations, blood pressure, adequacy of pulmonary ventilation, and response to care were monitored throughout the procedure. The physical status of the patient was re-assessed after the procedure. The Colonoscope was introduced through the anus and advanced to the cecum, identified by appendiceal orifice and ileocecal valve. The colonoscopy was performed without difficulty. The patient tolerated the procedure well. The quality of the bowel preparation was good. Findings: Multiple medium-mouthed diverticula were found in the sigmoid colon, descending colon, transverse colon and cecum. muscle hypertrophy, slight narrowing (able to traverse), no active or residual inflammation. Two pedunculated polyps were found in the sigmoid colon. The polyps were 5 to 7 mm in size. These polyps were removed with a hot snare. Resection and retrieval were complete. Estimated blood loss: none. The retroflexed view of the distal rectum and anal verge was normal and showed no anal or rectal abnormalities. Impression: - Moderate diverticulosis in the sigmoid colon, in the descending colon, in the transverse colon and in the cecum. - Two 5 to 7 mm polyps in the sigmoid colon, removed with a hot snare. Resected and retrieved. - The distal rectum and anal verge are normal on retroflexion view. Recommendation: - Discharge patient to home (ambulatory). - Use sugar-free Metamucil one tablespoon PO daily indefinitely. Janak Avina MD Janak Avina MD 11/17/2018 8:48:00 AM Electronically signed by Janak Avina MD Number of Addenda: 0 Note Initiated On: 11/17/2018 8:17 AM Estimated Blood Loss: Estimated blood loss: none.
[2018-11-17 09:10] VITALS: BP 151/67
== END 2018-11-17 09:11 | disposition home or self-care (01) ==
LOC: M OPP 07:07
PROVIDERS: ATTEND Surgery
DX: D12.5 Benign neoplasm of sigmoid colon (principal); K63.5 Polyp of colon; K57.30 Diverticulosis of large intestine without perforation or abscess without bleeding

== ENCOUNTER 2021-08-24 14:25 | Inpatient (IN) | payer MEDICARE ==
[2021-08-24] VITALS (7 sets, daily range): BP systolic 80–112; BP diastolic 42–69
[~2021-08-24] VITALS: Ht 154.9 cm; Wt 92.1 kg
[~2021-08-24 14:25] MED LIST changes: +AMLO1TAB24 PO; -AMLO5TAB6 PO; -MONT10TA2 PO; +MONT10TA97 PO; -NS 1,000 ML IV ONE; -SIMV40TA2 PO; +SIMV40TA20 PO
[2021-08-24] MEDS ORDERED: DEXTROSE 50% 50 ML SYRINGE IV STA (14:42)
[2021-08-24 15:03] LABS: BASO % 0.2 % (0.0-1.0); EOS # 0.1 10^3/uL (0.0-0.5); EOS % 0.7 % (0.0-3.0); HEMATOCRIT 43.5 % (36.0-47.0); HEMOGLOBIN 13.8 g/dl (12.0-15.5); LYMPH % 8.5 % (24.0-44.0); MEAN CORPUSCULAR HGB CONC 31.7 g/dl (32.0-36.5); MEAN CORPUSCULAR VOLUME 85.1 fl (80.0-96.0); MONO # 0.7 10^3/uL (0.0-0.8); MONO % 6.1 % (2.0-8.0); NEUTROPHILS # 9.3 10^3/uL (1.5-8.5); NEUTROPHILS % 83.5 % (36.0-66.0); PLATELET COUNT, AUTOMATED 194 10^3/uL (150-450); RED BLOOD COUNT 5.11 10^6/uL (4.00-5.40); WHITE BLOOD COUNT 11.1 10^3/uL (4.0-10.0)
[2021-08-24 15:23] LABS: CALCIUM LEVEL 8.4 MG/DL (8.8-10.2); CREATININE FOR GFR 1.3 MG/DL (0.55-1.30); GLOMERULAR FILTRATION RATE 41.3 (>32); POTASSIUM SERUM 3.8 MEQ/L (3.5-5.1)
[2021-08-24 15:28] LABS: HEMOGLOBIN A1c 6.8 %
[2021-08-24] MEDS: NS 1,000 ML IV SCH ×2 (15:35→23:05)
[2021-08-24] MEDS ORDERED: GLUCAGON INJ 1MG VIAL SC PRN (16:00)
[2021-08-24] MEDS ORDERED: DEXTROSE 50% 50 ML SYRINGE IV PRN (16:00)
[2021-08-24] MEDS ORDERED: GLUCOSE 4GM CHEW TABLET PO PRN (16:00)
[2021-08-24] MEDS ORDERED: D5W/0.45% SODIUM CHLORIDE 1,000 ML IV SCH (16:00)
[2021-08-24] MEDS ORDERED: CARV3.12 PO (16:02)
[2021-08-24] MEDS ORDERED: WARF-23 PO (16:02)
[2021-08-24] MEDS ORDERED: ALEN70TA82 PO (16:02)
[2021-08-24] MEDS ORDERED: CHLO125TA PO (16:03)
[2021-08-24] MEDS ORDERED: GLIM1TAB4 PO (16:03)
[2021-08-24] MEDS ORDERED: SPIR-10 PO (16:03)
[2021-08-24] MEDS ORDERED: SERT150C PO (16:03)
[2021-08-24 16:16] LABS: RSV AMPLIFICATION NEGATIVE (NEGATIVE)
[2021-08-24] MEDS ORDERED: ERGO500029 PO (16:58)
[2021-08-24] MEDS ORDERED: HOME MED LIST COMPLETE! XX SCH (17:00)
[2021-08-24] MEDS ORDERED: MORPHINE 2 MG/ML 1ML VIAL IV PRN ×2 (17:10)
[2021-08-24 17:22] LABS: INR 2.42; PROTHROMBIN TIME 26.7 SECONDS (12.7-14.5)
[2021-08-24 17:23] LABS: PARTIAL THROMBOPLASTIN TIME 36.2 SECONDS (25.9-37.0)
[2021-08-24] MEDS: CIPROFLOXACIN 400 MG in IV 1 EA IV SCH (17:59)
[2021-08-24 18:48] LABS: INR 2.54; PARTIAL THROMBOPLASTIN TIME 35.7 SECONDS (25.9-37.0); PROTHROMBIN TIME 27.7 SECONDS (12.7-14.5)
[2021-08-24] MEDS ORDERED: amLODIPine 5 MG TAB PO SCH (21:00)
[2021-08-24] MEDS ORDERED: CARVedilol 3.125 MG TAB PO SCH (21:00)
[2021-08-24] MEDS: metroNIDAZOLE 500 MG in IV 1 EA IV SCH (21:18)
[2021-08-24] MEDS: SIMVASTATIN 40 MG TAB PO SCH (21:19)
[2021-08-24] MEDS: ACETAMINOPHEN TAB 650MG DOSE (2X325MG) PO PRN (21:21)
[2021-08-24] MEDS ORDERED: HYDROCORTISONE 100 MG/2 ML VIAL (J1720 PER 1) IV ONE (23:00)
[2021-08-25] VITALS (16 sets, daily range): BP systolic 92–144; BP diastolic 43–76
[2021-08-25] MEDS ORDERED: D5W/0.9% SODIUM CHLORIDE 1,000 ML IV SCH (02:40)
[2021-08-25] MEDS: ACETAMINOPHEN TAB 650MG DOSE (2X325MG) PO PRN (02:52)
[2021-08-25 04:02] LABS: HEMATOCRIT 32.6 % (36.0-47.0); MEAN CORPUSCULAR HEMOGLOBIN 27.7 pg (27.0-33.0); MEAN CORPUSCULAR HGB CONC 32.5 g/dl (32.0-36.5); MEAN CORPUSCULAR VOLUME 85.1 fl (80.0-96.0); PLATELET COUNT, AUTOMATED 147 10^3/uL (150-450); RED BLOOD COUNT 3.83 10^6/uL (4.00-5.40); WHITE BLOOD COUNT 11.3 10^3/uL (4.0-10.0)
[2021-08-25] MEDS: metroNIDAZOLE 500 MG in IV 1 EA IV SCH ×2 (04:03→12:07)
[2021-08-25 04:14] LABS: HEMOGLOBIN 10.6 g/dl (12.0-15.5)
[2021-08-25 04:27] LABS: INR 3.09; PROTHROMBIN TIME 32.2 SECONDS (12.7-14.5)
[2021-08-25 04:28] LABS: PARTIAL THROMBOPLASTIN TIME 43.7 SECONDS (25.9-37.0)
[2021-08-25 04:30] LABS: BILIRUBIN,TOTAL 0.4 MG/DL (0.2-1.0); CALCIUM LEVEL 7.5 MG/DL (8.8-10.2); CREATININE FOR GFR 1.33 MG/DL (0.55-1.30); GLOMERULAR FILTRATION RATE 40.3 (>32); POTASSIUM SERUM 3.8 MEQ/L (3.5-5.1); TOTAL PROTEIN 5.7 GM/DL (6.4-8.2)
[2021-08-25] MEDS: LEVOTHYROXINE 75MCG TABLET (0.075MG) PO SCH (05:20)
[2021-08-25] MEDS: CIPROFLOXACIN 400 MG in IV 1 EA IV SCH (05:20)
[2021-08-25] MEDS: NS 1,000 ML IV SCH ×3 (05:20→23:39)
[2021-08-25] MEDS ORDERED: NS 1,000 ML IV ONE (07:00)
[2021-08-25] MEDS ORDERED: NOREPINEPHRINE BITARTRATE 8 MG in D5W 492 ML IV SCH (08:30)
[2021-08-25] MEDS ORDERED: ENOXAPARIN 30MG/0.3ML SYRINGE (J1650 PER 10MG) SC SCH (09:00)
[2021-08-25] MEDS: WARFARIN SOD 5MG TAB PO SCH (17:00)
[2021-08-25] MEDS: SIMVASTATIN 40 MG TAB PO SCH (20:54)
[2021-08-26] VITALS: BP 129/58
[2021-08-26 04:00] VITALS: BP 132/65
[2021-08-26] MEDS: LEVOTHYROXINE 75MCG TABLET (0.075MG) PO SCH (05:13)
[2021-08-26 06:24] LABS: HEMATOCRIT 32.5 % (36.0-47.0); HEMOGLOBIN 10.5 g/dl (12.0-15.5); MEAN CORPUSCULAR HEMOGLOBIN 27.8 pg (27.0-33.0); MEAN CORPUSCULAR HGB CONC 32.3 g/dl (32.0-36.5); PLATELET COUNT, AUTOMATED 141 10^3/uL (150-450); RED BLOOD COUNT 3.78 10^6/uL (4.00-5.40); WHITE BLOOD COUNT 8.9 10^3/uL (4.0-10.0)
[2021-08-26 06:38] LABS: INR 2.19; PROTHROMBIN TIME 24.7 SECONDS (12.7-14.5)
[2021-08-26 06:39] LABS: PARTIAL THROMBOPLASTIN TIME 46.2 SECONDS (25.9-37.0)
[2021-08-26 06:48] LABS: ALBUMIN 2.8 GM/DL (3.2-5.2); BILIRUBIN,TOTAL 0.6 MG/DL (0.2-1.0); CALCIUM LEVEL 7.7 MG/DL (8.8-10.2); CREATININE FOR GFR 1.22 MG/DL (0.55-1.30); GLOMERULAR FILTRATION RATE 44.5 (>32); POTASSIUM SERUM 4.1 MEQ/L (3.5-5.1); TOTAL PROTEIN 5.6 GM/DL (6.4-8.2)
[2021-08-26 08:00] VITALS: BP 132/71
[2021-08-26] MEDS: NS 1,000 ML IV SCH (11:35)
[2021-08-26 12:00] VITALS: BP 142/67
[2021-08-26 16:00] VITALS: BP 143/76
[2021-08-26] MEDS: WARFARIN SOD 5MG TAB PO SCH (17:50)
[2021-08-26 20:00] VITALS: BP 139/80
[2021-08-26] MEDS: SIMVASTATIN 40 MG TAB PO SCH (20:31)
[2021-08-27] VITALS: BP 122/56
[2021-08-27 04:40] VITALS: BP 169/72
[2021-08-27] MEDS: LEVOTHYROXINE 75MCG TABLET (0.075MG) PO SCH (05:31)
[2021-08-27 07:35] LABS: HEMATOCRIT 34.7 % (36.0-47.0); HEMOGLOBIN 11.4 g/dl (12.0-15.5); MEAN CORPUSCULAR HEMOGLOBIN 27.5 pg (27.0-33.0); MEAN CORPUSCULAR HGB CONC 32.9 g/dl (32.0-36.5); MEAN CORPUSCULAR VOLUME 83.6 fl (80.0-96.0); PLATELET COUNT, AUTOMATED 163 10^3/uL (150-450); RED BLOOD COUNT 4.15 10^6/uL (4.00-5.40); WHITE BLOOD COUNT 8.9 10^3/uL (4.0-10.0)
[2021-08-27 07:46] LABS: INR 1.53; PARTIAL THROMBOPLASTIN TIME 34.9 SECONDS (25.9-37.0); PROTHROMBIN TIME 18.8 SECONDS (12.7-14.5)
[2021-08-27 07:59] LABS: ALBUMIN 2.9 GM/DL (3.2-5.2); BILIRUBIN,TOTAL 0.5 MG/DL (0.2-1.0); CALCIUM LEVEL 8.2 MG/DL (8.8-10.2); TOTAL PROTEIN 6.4 GM/DL (6.4-8.2)
[2021-08-27 08:30] VITALS: BP 164/70
[2021-08-27] MEDS ORDERED: GLIP5TAB8 PO (11:19)
== END 2021-08-27 14:16 | disposition home or self-care (01) | DRG 392 ==
LOC: EDBD 14:25 → EDSEX 14:25 → M ED 14:25 → M ED INP 15:57 → ENRESERV 19:33 → M ICU 20:50 → M PCU 08-25 09:39
PROVIDERS: ADMIT Internal Medicine; ATTEND Internal Medicine
DX: A08.11 Acute gastroenteropathy due to Norwalk agent (principal); K57.92 Diverticulitis of intestine, part unspecified, without perforation or abscess without bleeding; E11.22 Type 2 diabetes mellitus with diabetic chronic kidney disease; I12.9 Hypertensive chronic kidney disease with stage 1 through stage 4 chronic kidney disease, or unspecified chronic kidney disease; E11.649 Type 2 diabetes mellitus with hypoglycemia without coma; I48.91 Unspecified atrial fibrillation; N18.30 Chronic kidney disease, stage 3 unspecified; E03.9 Hypothyroidism, unspecified; Z79.01 Long term (current) use of anticoagulants; Z86.718 Personal history of other venous thrombosis and embolism; Z88.6 Allergy status to analgesic agent; Z79.899 Other long term (current) drug therapy; Z96.619 Presence of unspecified artificial shoulder joint; Z87.891 Personal history of nicotine dependence; Z66 Do not resuscitate; I95.9 Hypotension, unspecified

== ENCOUNTER → 2022-12-25 | Outpatient (CLI) | payer MEDICARE ==
[~2022-12-25] MED LIST changes: +ALEN70TA82 PO; +CARV3.12 PO; +CHLO125TA PO; +ERGO500029 PO; +GLIM1TAB4 PO; +GLIP5TAB8 PO; +SERT150C PO; +SPIR-10 PO; +WARF-23 PO
== END ==
LOC: M SOG 08:00
PROVIDERS: ATTEND Orthopaedic Surgery
DX: M54.50 Low back pain, unspecified (principal)

== ENCOUNTER → 2023-01-02 | Outpatient (CLI) | payer MEDICARE | LOC: M PLARAD 14:17 | PROVIDERS: ATTEND Orthopaedic Surgery | DX: M48.56XA Collapsed vertebra, not elsewhere classified, lumbar region, initial encounter for fracture (principal) ==

== ENCOUNTER → 2023-03-11 | Outpatient (CLI) | payer MEDICARE ==
[~2023-03-11] MED LIST changes: +GLIP5TAB17 PO; -GLIP5TAB8 PO
== END ==
LOC: M WHC 12:42
PROVIDERS: ATTEND Orthopaedic Surgery
DX: S22.000D Wedge compression fracture of unspecified thoracic vertebra, subsequent encounter for fracture with routine healing (principal)

== ENCOUNTER → 2023-10-29 | Outpatient (CLI) | payer MEDICARE ==
[~2023-10-29] MED LIST changes: -GLIM1TAB4 PO; +GLIM1TAB84 PO
== END ==
LOC: M PLAIMG 14:26
PROVIDERS: ATTEND Physician Assistant
DX: I08.0 Rheumatic disorders of both mitral and aortic valves (principal)